=== PATIENT | female | born 1930 | race Caucasian/White ===

== ENCOUNTER 2017-12-10 14:06 | Emergency (ER) | payer OTHER, MEDICARE ==
[2017-12-10] MEDS ORDERED: KETOROLAC TROMETHAMINE 60 MG/2 ML VIAL IM ONE (15:44)
[2017-12-10 15:50] VITALS: BP 176/87; PULSE 66; TEMP 98.2; BMI 24.7
[2017-12-10] MEDS ORDERED: KETOROLAC TROMETHAMINE 30 MG/1 ML VIAL ONE (15:52)
--- NOTE | 2017-12-10 15:54 | PDOC ---
History of Present Illness - General Chief Complaint: Back Pain Stated Complaint: BACK PAIN Time Seen by Provider: 12/10/17 15:05 - History of Present Illness Initial Comments: 12/10/17 16:50 Chief complaint: Low back pain History of present illness: Following a long car trip with prolonged sitting, the patient developed pain and stiffness in the right sacral region of her low back. She has had minor back pains in the past. She has no radicular symptoms. She is in no pain at rest but has pain with bending and reaching. She is able to ambulate well. Review of systems: As noted above, no radicular symptoms in the lower extremities. No fever/chills, URI symptoms, sore throat, cough, chest pain, shortness of breath, abdominal pain, nausea, vomiting, diarrhea, visual or focal neurologic symptoms, unsteadiness of gait Past medical history: Mild high blood pressure controlled with Bytolic, hypothyroid on Synthroid, vestibular insufficiency undergoing physical therapy for gait disturbance. Social history: , lives with daughter who is healthy, no tobacco alcohol or nonprescription drugs. Family history: Reviewed and noncontributory Physical exam: Alert and oriented well-developed well-nourished no acute distress at rest, cheerful and cooperative Afebrile, mildly elevated blood pressure but remainder vital signs normal HEENT clear Neck supple without bruit mass or nodes Chest clear CV regular without murmur rub or gallop Abdomen benign LS spine without point tenderness or deformity of the lumbosacral vertebrae.. There is maintenance of the normal lumbar lordosis. There is mild tenderness over the right sacral pelvic area without swelling or mass. Straight leg raising is negative. Pulses are full. No sensory or motor deficits to the legs Impression: Low back strain, primarily in the right sacral area without radiculopathy or other sign of sciatica Plan: Rest, heat, symptomatic treatment and follow-up with internal control specialist if no improvement. Patient ambulating much better after treatment with Toradol, short course of ibuprofen prescribed. Discharge with family to follow-up as directed Past History - Past Medical History Allergies/Adverse Reactions: Allergies Allergy/AdvReac Type Severity Reaction Status Date / Time No Known Allergies Allergy Unverified 07/11/12 15:04 Home Medications: Ambulatory Orders Ibuprofen 400 mg PO TID #15 tablet 12/10/17 Levothyroxine [Synthroid -] 100 mcg PO HS 12/10/17 Nebivolol [Bystolic -] 10 mg PO HS 12/10/17 HTN: Yes Thyroid Disease: Yes - Suicide/Smoking/Psychosocial Hx Smoking History: Unknown if ever smoked Have you smoked in the past 12 months: No Hx Alcohol Use: No Drug/Substance Use Hx: No Substance Use Type: None *DC/Admit/Observation/Transfer Diagnosis at time of Disposition: Low back strain Qualifiers: Encounter type: initial encounter Qualified Code(s): S39.012A - Strain of muscle, fascia and tendon of lower back, initial encounter - Discharge Dispostion Disposition: HOME Condition at time of disposition: Stable Decision to Admit order: No - Prescriptions Prescriptions: Ibuprofen 400 mg PO TID #15 tablet - Referrals Referrals: Sukhdeep Felipe MD [Primary Care Provider] - 3 days - Patient Instructions Printed Discharge Instructions: DI for Low Back Pain Additional Instructions: Rest, heat, medication as directed. Avoid sitting. Lie on a firm surface or walk frequently around the house. See primary physician for follow-up 2-3 days. Return to ER if symptoms are aggravated or additional symptoms develop. - Post Discharge Activity
== END 2017-12-10 16:13 | disposition home or self-care (01) ==
LOC: FER 14:06
PROC: 3E0233Z Introduction of Anti-inflammatory into Muscle, Percutaneous Approach (ICD-10-PCS; principal; 2017-12-10)
DX: S39.012A Strain of muscle, fascia and tendon of lower back, initial encounter (principal); I10 Essential (primary) hypertension; E07.9 Disorder of thyroid, unspecified
CPT/HCPCS: 96372; 99282-25